=== PATIENT | male | born 1960 | race Two or more races ===

== ENCOUNTER 2024-06-14 17:09 | Emergency (ER) | payer BC, MEDICAID ==
[~2024-06-14] VITALS: Ht 175.3 cm; Wt 98.2 kg
[2024-06-14 18:33] VITALS: BP 148/88; PULSE 92; TEMP 98.8
[2024-06-14] MEDS ORDERED: PRED20TA2 PO (20:03)
[2024-06-14] MEDS ORDERED: ALBUAER3 IN (20:03)
--- NOTE | 2024-06-14 20:03 | ED.PDOC ---
SOB-HPI HPI Comments 64-year-old male presents to ER with complaints of asthma exacerbation x1 day. Patient with past medical history significant for asthma reports that he started experiencing wheezing and shortness of breath at 3:00 p.m. prior to arrival to ER. States he has had similar symptoms in the past related to asthma exacerbation and notes that he recently moved up here three weeks ago and has been experiencing intermittent asthma exacerbation since. States he did use his albuterol inhaler and albuterol nebulizer treatment with slight relief. Patient presents to ER ambulatory on arrival, with steady gait, in no distress with pulse ox noted to be 96% on room air. Denies fever, recent illness, chest pain or any further symptoms/complaints Chief Complaint: Shortness of Breath Time Seen by MD: 18:08 Primary Care Provider: PANKAJ Reviewed notes: Nurses Notes, Medications, Allergies Information Source: Patient Mode of Arrival: Ambulatory Past Medical History PAST MEDICAL HISTORY: Asthma, HTN Surgical History: Denies all surgeries Family History Family History: Unknown Social History Smoker: Non-Smoker Alcohol: Denies ETOH Use Drugs: Denies Drug Use Lives In: Home Constitutional: denies: chills, diaphoresis, fatigue, fever, malaise, sweats, weakness, others EENTM: denies: blurred vision, double vision, ear bleeding, ear discharge, ear drainage, ear pain, ear ringing, eye pain, eye redness, hearing loss, mouth pain, mouth swelling, nasal discharge, nose bleeding, nose congestion, nose pain, photophobia, tearing, throat pain, throat swelling, voice changes, others Respiratory: reports: others (As stated in HPI) Cardiovascular: denies: chest pain, dizzy spells, diaphoresis, Dyspnea on exertion, edema, irregular heart beat, left arm pain, lightheadedness, palpitations, PND, syncope, others Gastrointestinal: denies: abdomen distended, abdominal pain, blood streaked bowels, constipated, diarrhea, dysphagia, difficulty swallowing, hematemesis, melena, nausea, poor appetite, poor fluid intake, rectal bleeding, rectal pain, vomiting, others Genitourinary: denies: burning, dysuria, flank pain, frequency, hematuria, incontinence, penile discharge, penile sore, pain, testicle pain, testicle swelling, urgency, others Neurological: denies: dizziness, fainting, headache, left sided numbness, left sided weakness, numbness, paresthesia, pre-existing deficit, right sided numbness, right sided weakness, seizure, speech problems, tingling, tremors, weakness, others Musculoskeletal: denies: back pain, gout, joint pain, joint swelling, muscle pain, muscle stiffness, neck pain, others Integumetry: denies: bruises, change in color, change in hair/nails, dryness, laceration, lesions, lumps, rash, wounds, others Allergic/Immunocompromised: denies: Difficulty Healing, Frequent Infections, Hives, Itching, others Hematologic/Lymphatic: denies: anemia, blood clots, easy bleeding, easy bruising, swollen glands, others Endocrine: denies: excessive hunger, excessive sweating, excessive thirst, excessive urination, flushing, intolerance to cold, intolerance to heat, unexplained weight gain, unexplained weight loss, others Psychiatric: denies: anxiety, bipolar disorder, depression, hopeless, panic disorder, schizophrenia, sleepless, suicidal, others Physical Exam General Appearance: No Apparent Distress, Obese HEENT: Normal ENT Inspection, PERRL/EOMI, Pharynx Normal, TMs Normal Neck: Full Range of Motion, Non-Tender, Normal Respiratory: Chest Non-Tender, Lungs Clear, No Accessory Muscle Use, No Respiratory Distress, Wheezing (Mild wheezing noted to bilateral upper lung tejeda) Cardiovascular: No Murmur, No Gallop, Regular Rate/Rhythm Breast Exam: Deferred Gastrointestinal: NOT DONE Genitalia: Deferred Pelvic: Deferred Rectal: Deferred Extremities: Normal capillary refill, Normal range of motion Neurologic: Alert, No Motor Deficits, Normal Affect, Normal Mood, No Sensory Deficits Cerebellar Function: Normal Reflexes: Normal Skin: Dry, Normal Color, Warm Peripheral Pulses: 2+ Radial (R), 2+ Radial (L), 2+ Brachial (R), 2+ Brachial (L) Lymphatic: No Adenopathy Was a procedure done? Was a procedure done?: No Sedation Sedation?: No Differential Dx Differential Diagnosis: Pneumonia, Pulmonary Embolism, Respiratory Distress X-Ray, Labs, Meds, VS Vital Signs Date Time Temp Pulse Resp B/P (MAP) Pulse Ox O2 Delivery O2 Flow Rate FiO2 06/14/24 18:33 92 20 96 Room Air 06/14/24 18:33 98.8 92 20 148/88 (108) 96 98.8 06/14/24 17:20 98.8 92 20 148/88 (309) 96 Solu-Medrol 125 mg IM ordered Albuterol 5 mg nebulizer treatment ordered Atrovent 0.5 mg nebulizer treatment ordered Patient had improvement in symptoms and was asymptomatic prior to discharge Advised to drink plenty of fluids Advised to follow up with PCP in 1-2 days Patient verbalized understanding and agreeable with current plan of care Advised to return to ER immediately if symptoms worsen Time of 1ST Reevaluation: 19:44 Reevaluation 1ST: N/A Patient Education/Counseling: Diagnosis, Treatment, Prognosis, Need For Follow Up Family Education/Counseling: No Family Present Departure 1 Departure Time of Disposition: 20:00 Impression: Primary Impression: Acute asthma exacerbation Qualified Codes: J45.21 - Mild intermittent asthma with (acute) exacerbation Disposition: 01 HOME / SELF CARE / HOMELESS Condition: Stable e-Prescriptions Prednisone (Prednisone) 20 Mg Tab 20 MG PO BID for 5 Days, #10 TAB 0 Refills Prov: SAVAGE VILLEDA 06/14/24 Albuterol Sulfate (VENTOLIN MDI) 90 Mcg Ih 2 PUFF IN Q6HPRN, #1 INH 0 Refills Prov: SAVAGE VILLEDA 06/14/24 Discharged With: Self Critical Care Note Critical Care Time?: No Stability Stability form required: No Heart Score Heart Score: Heart Score Response (Comments) Value History N/A 0 EKG N/A 0 Age N/A 0 Risk Factors N/A 0 Troponin N/A 0 Total 0 SAVAGE VILLEDA Jun 14, 2024 20:03
[2024-06-14] MEDS: methylPREDNISolone SOD SUCC 125 MG/2 ML VL IM ONE (20:08)
[2024-06-14] MEDS: ALBUTEROL SULF 2.5 MG/0.5ML(0.5%) NEB SOLN NEB ONE (20:11)
[2024-06-14 20:12] VITALS: RESP 16; O2SAT 95
[2024-06-14] MEDS: IPRATROPIUM BROM 0.5 MG/2.5ML INH SOL NEB ONE (20:12)
== END 2024-06-14 20:24 | disposition home or self-care (01) ==
LOC: ER 17:17
DX: J45.901 Unspecified asthma with (acute) exacerbation (principal); I10 Essential (primary) hypertension
CPT/HCPCS: 94640; 96372; 99283; J2919

== ENCOUNTER 2024-07-13 10:29 | Emergency (ER) | payer BC, MEDICAID ==
[~2024-07-13] VITALS: Ht 175.3 cm; Wt 97.9 kg
[~2024-07-13 10:29] MED LIST: ALBUAER3 IN; PRED20TA2 PO
--- NOTE | 2024-07-13 11:11 | DVH ---
EXAM: XY CHEST PORTABLE Indication: SOB Technique: Single frontal view of the chest was obtained Comparison: None FINDINGS: Lines and Tubes: None Lungs: No focal consolidation. Pleura: No effusion. No pneumothorax. Cardiomediastinal contours: Unremarkable Bones: No acute osseous abnormality. IMPRESSION: No acute cardiopulmonary disease.
[2024-07-13 11:23] LABS: Basophils # (auto) 0.1 10 ^3/uL (0-0.2); Basophils % (auto) 1.1 % (0.0-2.0); Eosinophils # (auto) 0.3 10 ^3/uL (0-0.8); Eosinophils % (auto) 5.7 % (0.0-7.0); Hematocrit 41.5 % (41.0-53.0); Hemoglobin 14.4 g/dL (13.5-17.5); Lymphocytes # (auto) 1.3 10 ^3/uL (0.4-5.4); Mean Corpuscular Hemoglobin 34.1 pg (28.0-32.0); Mean Corpuscular Hgb Conc. 34.6 g/dL (32.0-36.0); Mean Corpuscular Volume 98.3 fL (80.0-100.0); Monocytes # (auto) 0.3 10 ^3/uL (0-1.3); Monocytes % (auto) 4.7 % (0.0-12.0); Neutrophils # (auto) 3.7 10 ^3/uL (1.6-8.6); Neutrophils % (auto) 65.5 % (37.0-80.0); Platelet Count (auto) 261 10^3/uL (140-450); Red Blood Cells 4.22 10^6/uL (4.5-5.90); Red Cell Distribution Width 11.7 % (11.8-14.3); White Blood Cell 5.7 10^3/uL (4.4-10.8)
[2024-07-13] MEDS ORDERED: BUDE1AER16 IN (11:33)
[2024-07-13] MEDS ORDERED: PRED20TA2 PO (11:33)
[2024-07-13 11:34] LABS: Chloride 104 mmol/L (98-107); Sodium 141 mmol/L (136-145)
[2024-07-13 11:35] LABS: Anion Gap 6 (5-15); Carbon Dioxide 31 mmol/L (20-31)
[2024-07-13 11:40] LABS: Glucose 91 mg/dL (74-106)
[2024-07-13 11:41] LABS: BUN/Creatinine Ratio 15.4 (10.0-20.0); Blood Urea Nitrogen 18 mg/dL (9-23)
[2024-07-13] MEDS: ALBUTEROL SULF 2.5 MG/0.5ML(0.5%) NEB SOLN NEB ONE (11:42)
[2024-07-13] MEDS: IPRATROPIUM BROM 0.5 MG/2.5ML INH SOL NEB ONE (11:42)
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
[2024-07-13 13:10] VITALS: BP 141/88; TEMP 98.3
[2024-07-13 13:12] VITALS: PULSE 70; RESP 16; O2SAT 97
[2024-07-13] MEDS: DexAMETHasone SOD PHOS 10MG/1ML VIAL INJ IM ONE (13:21)
== END 2024-07-13 13:29 | disposition home or self-care (01) ==
LOC: ER 10:29
DX: J45.901 Unspecified asthma with (acute) exacerbation (principal); I10 Essential (primary) hypertension; Z76.0 Encounter for issue of repeat prescription
CPT/HCPCS: 36415; 71045; 80048; 83880; 84484; 85025; 94640; 96372; 99284; J1100

== ENCOUNTER 2025-02-12 08:47 | Emergency (ER) | payer BC, MEDICAID ==
[~2025-02-12] VITALS: Ht 175.3 cm; Wt 104.4 kg
[~2025-02-12 08:47] MED LIST changes: +BUDE1AER16 IN
--- NOTE | 2025-02-12 09:13 | ECG ---
[facility] Test Date: 2025-02-12 Test Time: 09:09:18 Pat Name: HUGO BERGERON Department: [facility] Room: Gender: Senior Qa Tester: ELLIE : 1960 Requested By: TRESA BARTLETT Order Number: [id number] Reading MD: Measurements Intervals [place] Rate: 62 P: 33 ND: 158 QRS: 31 QRSD: 95 T: 48 QT: 430 QTc: 437 Interpretive Statements Sinus rhythm Borderline T wave abnormalities Please click the below link to view image of tracing.
--- NOTE | 2025-02-12 09:22 | ED.PDOC ---
SOB-HPI HPI Comments A 64 YEAR-OLD MALE, WITH A PMHX OF ASTHMA AND HTN, PRESENTS TO THE ED WITH A CHIEF COMPLAINT OF SOB WITH WHEEZING OF X2 DAYS AGO. PATIENT STATES HE HAS HX OF ASTHMA AND USES ALBUTEROL INHALER AT HOME. DID A BREATHING TREATMENT AT HOME WITH NO ALLEVIATING FACTORS NOTED. PATIENT STATES HE WAS RECENTLY EXPOSED TO LOTS OF DIRT THAT MAY HAVE AGGRAVATED ASTHMA. PATIENT OTHERWISE DENIES OTHER ASSOCIATED SYMPTOMS OF CHEST PAIN, COUGH, N/V/D, DIZZINESS, BLURRED VISION, OR PALPITATIONS. PATIENT IS ALERT, ORIENTED X 4, AND HAS STEADY GAIT. Chief Complaint: Asthma Time Seen by MD: 09:15 Primary Care Provider: yosi Reviewed notes: Nurses Notes, Medications, Allergies Information Source: Patient Mode of Arrival: Ambulatory Severity: Moderate Timing: Days (2) Duration: Since onset History of: Asthma Associated Signs and Symptoms: Other (SOB ) Other History ASTHMA AND HTN Past Medical History PAST MEDICAL HISTORY: Asthma, HTN Surgical History: Denies all surgeries Family History Family History: Unknown Social History Smoker: Non-Smoker Alcohol: Denies ETOH Use Drugs: Denies Drug Use Lives In: Home Constitutional: denies: chills, diaphoresis, fatigue, fever, malaise, sweats, weakness, others EENTM: denies: blurred vision, double vision, ear bleeding, ear discharge, ear drainage, ear pain, ear ringing, eye pain, eye redness, hearing loss, mouth pain, mouth swelling, nasal discharge, nose bleeding, nose congestion, nose pain, photophobia, tearing, throat pain, throat swelling, voice changes, others Respiratory: reports: shortness of breath, wheezing; denies: cough, hemoptysis, orthopnea, stridor, others Cardiovascular: denies: chest pain, dizzy spells, diaphoresis, Dyspnea on exertion, edema, irregular heart beat, left arm pain, lightheadedness, palpitations, PND, syncope, others Gastrointestinal: denies: abdomen distended, abdominal pain, blood streaked bowels, constipated, diarrhea, dysphagia, difficulty swallowing, hematemesis, melena, nausea, poor appetite, poor fluid intake, rectal bleeding, rectal pain, vomiting, others Genitourinary: denies: burning, dysuria, flank pain, frequency, hematuria, incontinence, penile discharge, penile sore, pain, testicle pain, testicle swelling, urgency, others Neurological: denies: dizziness, fainting, headache, left sided numbness, left sided weakness, numbness, paresthesia, pre-existing deficit, right sided numbness, right sided weakness, seizure, speech problems, tingling, tremors, weakness, others Musculoskeletal: denies: back pain, gout, joint pain, joint swelling, muscle pain, muscle stiffness, neck pain, others Integumetry: denies: bruises, change in color, change in hair/nails, dryness, laceration, lesions, lumps, rash, wounds, others Allergic/Immunocompromised: denies: Difficulty Healing, Frequent Infections, Hives, Itching, others Hematologic/Lymphatic: denies: anemia, blood clots, easy bleeding, easy bruising, swollen glands, others Endocrine: denies: excessive hunger, excessive sweating, excessive thirst, excessive urination, flushing, intolerance to cold, intolerance to heat, unexplained weight gain, unexplained weight loss, others Psychiatric: denies: anxiety, bipolar disorder, depression, hopeless, panic disorder, schizophrenia, sleepless, suicidal, others All Other Systems: Reviewed and Negative Physical Exam General Appearance: No Apparent Distress, Normal HEENT: Normal ENT Inspection, PERRL/EOMI, Pharynx Normal, TMs Normal Neck: Full Range of Motion, Non-Tender, Normal, Normal Inspection Respiratory: Chest Non-Tender, Decreased Breath Sounds, Expiration, No Accessory Muscle Use, No Respiratory Distress, Rhonchi Cardiovascular: No Edema, No JVD, No Murmur, No Gallop, Normal Peripheral Pulses, Regular Rate/Rhythm Breast Exam: Deferred Gastrointestinal: No Organomegaly, Non Tender, No Pulsatile Mass, Normal Bowel Sounds, Soft Genitalia: Deferred Pelvic: Deferred Rectal: Deferred Extremities: No calf tenderness, Normal capillary refill, Normal inspection, Normal range of motion, Non-tender, No pedal edema Musculoskeletal : Apperance: Normal Neurologic: Alert, chief knowledge officer II-XII nml as Tested, No Motor Deficits, Normal Affect, Normal Mood, No Sensory Deficits Cerebellar Function: Normal Reflexes: Normal Skin: Dry, Normal Color, Warm Peripheral Pulses: 2+ carotid (R), 2+ carotid (L) Lymphatic: No Adenopathy EKG EKG : Pulse Rate (adult): 62 [place]: Normal Cardiac Rhythm: NSR Was a procedure done? Was a procedure done?: No Differential Dx Differential Diagnosis: Anxiety, Asthma, COPD, Panic Attack, Sinusitis, Allergic Rhinitis X-Ray, Labs, Meds, VS Vital Signs Date Time Temp Pulse Resp B/P (MAP) Pulse Ox O2 Delivery O2 Flow Rate FiO2 02/12/25 10:01 18 98 Room Air* 0 21 02/12/25 09:23 62 02/12/25 09:09 62 02/12/25 09:05 98.4 64 13 153/94 (113) 98 98.4 02/12/25 09:05 13 98 Room Air* 0 21 Current Medications Medications (Trade) Dose Ordered Sig/Haydee Route Start Time Stop Time Status Last Admin Albuterol (Ventolin Medneb) 5 mg ONCE ONCE NEB 02/12/25 09:30 02/12/25 09:31 DC 02/12/25 10:02 Ipratropium [place] (Atrovent Medneb) 1 mg ONCE ONCE NEB 02/12/25 09:30 02/12/25 09:31 DC 02/12/25 10:01 Methylprednisolone Sodium Succinate (Solu Medrol) 125 mg ONCE ONCE IM 02/12/25 09:30 02/12/25 09:31 DC 02/12/25 09:58 X-Ray, Labs, Meds, VS Comment EXTERNAL MEDICAL RECORDS: NONE INDEPENDENT HISTORIANS: NONE SOCIAL DETERMINANTS OF HEALTH: NONE LABS ORDERED: NONE REVIEWED AND INTERPRETED RESULTS: NONE IMAGING ORDERED: CHEST XRAY: NO ACUTE FINDING, READ BY ME, PENDING RADIOLOGIST READING. TREATMENTS ORDERED: VEBTOLIN 5MG, ATROVENT 1MG, SOLU MEDROL IM. AFTER TREATMENT, PT STATES HE FEELS BETTER AND READY TO GO HOME. PATIENT'S CASE AND RESULTS HAVE BEEN DISCUSSED WITH THE ED ATTENDING PHYSICIAN AND THEY AGREE WITH MY PLAN OF CARE. RX: PREDNISONE I HAVE DISCUSSED IMAGING AND LAB RESULTS WITH THE PATIENT AND HAVE INSTRUCTED THE PATIENT TO FOLLOW UP WITH THEIR PCP IN 1-2 DAYS. THE PATIENT FULLY UNDERSTANDS THEIR RESULTS AND ARE AWARE THEY NEED TO FOLLOW UP WITH THEIR PCP FOR FURTHER EVALUATION IF THEIR SYMPTOMS PERSIST. Images Reviewed?: Images reviewed and evaluated by me Time of 1ST Reevaluation: 10:20 Reevaluation 1ST: Improved Patient Education/Counseling: Diagnosis, Treatment, Need For Follow Up Family Education/Counseling: Diagnosis, Treatment, No Family Present Medical Screening: No EMC Exist At This Time SEPSIS Sepsis Screen Physician Orders Chest Portable (02/12/25 09:17) Vital Signs Date Time Temp Pulse Resp B/P (MAP) Pulse Ox O2 Delivery O2 Flow Rate FiO2 02/12/25 10:01 18 98 Room Air* 0 21 02/12/25 09:23 62 02/12/25 09:09 62 02/12/25 09:05 98.4 64 13 153/94 (113) 98 98.4 02/12/25 09:05 13 98 Room Air* 0 21 Medications Medications Dose Ordered Sig/Haydee Route Start Time Stop Time Status Last Admin Dose Admin Albuterol 5 mg ONCE ONCE NEB 02/12/25 09:30 02/12/25 09:31 DC 02/12/25 10:02 Ipratropium [place] 1 mg ONCE ONCE NEB 02/12/25 09:30 02/12/25 09:31 DC 02/12/25 10:01 Methylprednisolone Sodium Succinate 125 mg ONCE ONCE IM 02/12/25 09:30 02/12/25 09:31 DC 02/12/25 09:58 Departure 1 Departure Time of Disposition: 10:20 Impression: Primary Impression: Acute asthma exacerbation Qualified Codes: J45.31 - Mild persistent asthma with (acute) exacerbation Disposition: HOME / SELF CARE / HOMELESS Condition: Stable Additional Instructions: FOLLOW-UP WITH PCP IN 1 TO 2 DAYS. TAKE MEDICATIONS PRESCRIBED. RETURN TO ED FOR ANY NEW OR WORSENING SYMPTOMS. e-Prescriptions Prednisone (Prednisone) 20 Mg Tab 60 MG PO DAILY, #15 TAB Prov: SATYA MILLS 02/12/25 Discharged With: Self Critical Care Note Critical Care Time?: No Stability Stability form required: No Heart Score Heart Score: Heart Score Response (Comments) Value History N/A 0 EKG N/A 0 Age >65 2 Risk Factors N/A 0 Troponin N/A 0 Total 2 I personally scribed for SATYA MILLS ([email or web address]) on 02/12/25 at 09:22. Electronically submitted by Sylvie Mckenzie ([email or web address]). I personally scribed for SATYA MILLS ([email or web address]) on 02/12/25 at 09:23. Electronically submitted by Sylvie Mckenzie ([email or web address]). I personally scribed for SATYA MILLS ([email or web address]) on 02/12/25 at 09:25. Electronically submitted by Sylvie Mckenzie ([email or web address]). SATYA MILLS Feb 12, 2025 09:22
[2025-02-12] MEDS: IPRATROPIUM BROM 0.5 MG/2.5ML INH SOL NEB ONE ×2 (09:33→10:01)
[2025-02-12] MEDS: methylPREDNISolone SOD SUCC 125 MG/2 ML VL IM ONE (09:58)
[2025-02-12] MEDS: ALBUTEROL SULF 2.5 MG/0.5ML(0.5%) NEB SOLN NEB ONE (10:02)
[2025-02-12] MEDS ORDERED: PRED20TA2 PO (10:09)
[2025-02-12 10:15] VITALS: BP 165/85; PULSE 63; RESP 14; TEMP 98.4; O2SAT 99
--- NOTE | 2025-02-12 10:41 | DVH ---
CLINICAL INFORMATION: Wheezing. TECHNIQUE: Single AP portable chest radiograph was obtained. COMPARISON: XY CHEST PORTABLE on DOS: 07/13/24 FINDINGS: Lungs: Clear. Cardiac: Heart size is within normal limits. Pulmonary vasculature: Unremarkable. Mediastinum/maren: Unremarkable. Bones: No acute osseous abnormality identified. Other: No other significant findings. IMPRESSION: No evidence of acute disease in the chest.
== END 2025-02-12 10:29 | disposition home or self-care (01) ==
LOC: ER 08:47
DX: J45.901 Unspecified asthma with (acute) exacerbation (principal); I10 Essential (primary) hypertension
CPT/HCPCS: 71045; 93005; 94640; 96372; 99283; J2919

== ENCOUNTER 2025-04-11 09:58 | Emergency (ER) | payer BC, MEDICAID ==
[~2025-04-11] VITALS: Ht 175.3 cm; Wt 103.8 kg
[2025-04-11 11:30] VITALS: BP 166/91; PULSE 63; TEMP 98.4
--- NOTE | 2025-04-11 11:40 | ED.PDOC ---
SOB-HPI HPI Comments 65 year old male presents to the ED with a chief complaint of asthma exa cerbation onset 3 days. Patient has been experiencing asthma exacerbation, with shortness of breath and wheezing for the past 3 days, worsens at night. He has used nebulizer and albuterol inhaler with intermittent relief. Denies fever, chills, headache, dizziness, chest pain, nausea, vomiting, diarrhea. PMHx asthma, HTN. No other symptoms or modifying factors present at this time. Chief Complaint: Asthma Time Seen by MD: 11:40 Primary Care Provider: yosi Reviewed notes: Medications, Allergies Information Source: Patient Mode of Arrival: Ambulatory Severity: Moderate Timing: Days Duration: Since onset Context: At Rest PE Risk Factors: None History of: Asthma Prehospital treatment: Treatment Modifying Factors: Nothing Associated Signs and Symptoms: Wheeze Past Medical History PAST MEDICAL HISTORY: Asthma, HTN Surgical History: Denies all surgeries Family History Family History: Unknown Social History Smoker: Non-Smoker Alcohol: Denies ETOH Use Drugs: Denies Drug Use Lives In: Home Constitutional: denies: chills, diaphoresis, fatigue, fever, malaise, sweats, weakness, others EENTM: denies: blurred vision, double vision, ear bleeding, ear discharge, ear drainage, ear pain, ear ringing, eye pain, eye redness, hearing loss, mouth p ain, mouth swelling, nasal discharge, nose bleeding, nose congestion, nose pain, photophobia, tearing, throat pain, throat swelling, voice changes, others Respiratory: reports: cough, shortness of breath, wheezing; denies: hemoptysis, orthopnea, SOB at rest, SOB with excertion, stridor, others Cardiovascular: denies: chest pain, dizzy spells, diaphoresis, Dyspnea on exertion, edema, irregular heart beat, left arm pain, lightheadedness, palpitations, PND, syncope, others Gastrointestinal: denies: abdomen distended, abdominal pain, blood streaked bowels, constipated, diarrhea, dysphagia, difficulty swallowing, hematemesis, melena, nausea, poor appetite, poor fluid intake, rectal bleeding, rectal pain, vomiting, others Genitourinary: denies: burning, dysuria, flank pain, frequency, hematuria, incontinence, penile discharge, penile sore, pain, testicle pain, testicle swelling, urgency, others Neurological: denies: dizziness, fainting, headache, left sided numbness, left sided weakness, numbness, paresthesia, pre-existing deficit, right sided numbness, right sided weakness, seizure, speech problems, tingling, tremors, weakness, others Musculoskeletal: denies: back pain, gout, joint pain, joint swelling, muscle pain, muscle stiffness, neck pain, others Integumetry: denies: bruises, change in color, change in hair/nails, dryness, laceration, lesions, lumps, rash, wounds, others Allergic/Immunocompromised: denies: Difficulty Healing, Frequent Infections, Hives, Itching, others Hematologic/Lymphatic: denies: anemia, blood clots, easy bleeding, easy bruising, swollen glands, others Endocrine: denies: excessive hunger, excessive sweating, excessive thirst, excessive urination, flushing, intolerance to cold, intolerance to heat, unexplained weight gain, unexplained weight loss, others Psychiatric: denies: anxiety, bipolar disorder, depression, hopeless, panic disorder, schizophrenia, sleepless, suicidal, others All Other Systems: Reviewed and Negative Physical Exam General Appearance: Mild Distress, Moderate Distress, Normal HEENT: Normal ENT Inspection, PERRL/EOMI, Pharynx Normal, TMs Normal Neck: Full Range of Motion, Non-Tender, Normal, Normal Inspection Respiratory: Crackles, Decreased Breath Sounds, Expiration, Inspiration, Lungs Clear, No Accessory Muscle Use, No Respiratory Distress, Wheezing Cardiovascular: No Edema, No JVD, No Murmur, No Gallop, Normal Peripheral Pulses, Regular Rate/Rhythm Breast Exam: Deferred Gastrointestinal: No Organomegaly, Non Tender, No Pulsatile Mass, Normal Bowel Sounds, Soft Genitalia: Deferred Pelvic: Deferred Rectal: Deferred Extremities: No calf tenderness, Normal capillary refill, Normal inspection, Normal range of motion, Non-tender, No pedal edema Musculoskeletal : Apperance: Normal Neurologic: Alert, manager of patient II-XII nml as Tested, No Motor Deficits, Normal Affect, Normal Mood, No Sensory Deficits Cerebellar Function: Normal Reflexes: Normal Skin: Dry, Normal Color, Warm Peripheral Pulses: 1+ carotid (R), 1+ carotid (L) Lymphatic: No Adenopathy Was a procedure done? Was a procedure done?: No Differential Dx Differential Diagnosis: Asthma, Bronchitis, URI X-Ray, Labs, Meds, VS Vital Signs Date Time Temp Pulse Resp B/P (MAP) Pulse Ox O2 Delivery O2 Flow Rate FiO2 04/11/25 11:50 18 98 Room Air* 0 21 04/11/25 11:30 63 18 97 Room Air 04/11/25 11:30 98.4 63 18 166/91 (116) 97 98.4 04/11/25 10:05 24 96 Room Air* 0 21 04/11/25 10:00 98.8 70 24 156/88 96 98.8 Current Medications Medications (Trade) Dose Ordered Sig/Haydee Route Start Time Stop Time Status Last Admin Albuterol (Ventolin Medneb) 5 mg ONCE ONCE NEB 04/11/25 11:45 04/11/25 11:46 DC 04/11/25 11:49 Ipratropium [place] (Atrovent Medneb) 0.5 mg ONCE ONCE NEB 04/11/25 11:45 04/11/25 11:46 DC 04/11/25 11:49 Methylprednisolone Sodium Succinate (Solu Medrol) 125 mg ONCE ONCE IM 04/11/25 11:45 04/11/25 11:46 DC 04/11/25 11:51 X-Ray, Labs, Meds, VS Comment Course in the [employer] eventful patient came in with a an acute asthma attack You received med neb and also prednisone If his better and ready to be discharged Time of 1ST Reevaluation: 12:10 Reevaluation 1ST: Unchanged Patient Education/Counseling: Diagnosis, Treatment, Prognosis Family Education/Counseling: No Family Present SEPSIS Sepsis Screen Date sepsis recognized/suspect: Apr 11, 2025 Time Sepsis recognized/suspect: 1000 Recent Procedure: No On Antibiotic Therapy: No Respiratory Rate >20: Yes Heart Rate >90: No Temp<36 C (96.8 F) or >38.3 C: No SBP <90 or MAP <65 mmHG: No New Acute Mental Status Change: No Is the patient on CPAP, BIPAP,: No Vital Signs Date Time Temp Pulse Resp B/P (MAP) Pulse Ox O2 Delivery O2 Flow Rate FiO2 04/11/25 11:50 18 98 Room Air* 0 21 04/11/25 11:30 63 18 97 Room Air 04/11/25 11:30 98.4 63 18 166/91 (116) 97 98.4 04/11/25 10:05 24 96 Room Air* 0 21 04/11/25 10:00 98.8 70 24 156/88 96 98.8 Medications Medications Dose Ordered Sig/Haydee Route Start Time Stop Time Status Last Admin Dose Admin Albuterol 5 mg ONCE ONCE NEB 04/11/25 11:45 04/11/25 11:46 DC 04/11/25 11:49 Ipratropium [place] 0.5 mg ONCE ONCE NEB 04/11/25 11:45 04/11/25 11:46 DC 04/11/25 11:49 Methylprednisolone Sodium Succinate 125 mg ONCE ONCE IM 04/11/25 11:45 04/11/25 11:46 DC 04/11/25 11:51 Departure 1 Departure Time of Disposition: 12:44 Impression: Primary Impression: Asthma with status asthmaticus Qualified Codes: J45.42 - Moderate persistent asthma with status asthmaticus Disposition: HOME / SELF CARE / HOMELESS Condition: Fair Additional Instructions: Follow up with your PCP e-Prescriptions Albuterol Sulfate (VENTOLIN MDI) 90 Mcg Ih 90 MCG IN BID for 10 Days, #1 INH Prov: SABINE PASCUAL MD 04/11/25 Prednisone (Prednisone) 20 Mg Tab 20 MG PO BID for 5 Days, #10 MG Prov: SABINE PASCUAL MD 04/11/25 Azithromycin (Zithromax) 500 Mg Tab 1 TAB PO DAILY for 5 Days, #5 TAB Prov: SABINE PASCUAL MD 04/11/25 Discharged With: Self Critical Care Note Critical Care Time?: No Stability Stability form required: No Heart Score Heart Score: Heart Score Response (Comments) Value History N/A 0 EKG N/A 0 Age N/A 0 Risk Factors 1 or 2 risk factors 1 Troponin N/A 0 Total 1 I personally scribed for SABINE PASCUAL MD ([email or web address]) on 04/11/25 at 11:40. Electronically submitted by Omayra Underwood ([email or web address]). SABINE PASCUAL MD Apr 11, 2025 11:40
[2025-04-11] MEDS: IPRATROPIUM BROM 0.5 MG/2.5ML INH SOL NEB ONE (11:49)
[2025-04-11] MEDS: ALBUTEROL SULF 2.5 MG/0.5ML(0.5%) NEB SOLN NEB ONE (11:49)
[2025-04-11 11:50] VITALS: RESP 18; O2SAT 98
[2025-04-11] MEDS: methylPREDNISolone SOD SUCC 125 MG/2 ML VL IM ONE (11:51)
[2025-04-11] MEDS ORDERED: AZIT500T PO (12:48)
[2025-04-11] MEDS ORDERED: PRED20TA2 PO (12:48)
[2025-04-11] MEDS ORDERED: ALBUAER3 IN (12:48)
== END 2025-04-11 12:54 | disposition home or self-care (01) ==
LOC: ER 09:58
DX: J45.902 Unspecified asthma with status asthmaticus (principal); I10 Essential (primary) hypertension
CPT/HCPCS: 94640; 96372; 99283; J2919

== ENCOUNTER 2025-07-13 08:56 | Inpatient (IN) | payer BC, MEDICAID ==
[~2025-07-13] VITALS: Ht 175.3 cm; Wt 99.1 kg
[~2025-07-13 08:56] MED LIST changes: +AZIT500T PO
--- NOTE | 2025-07-13 09:27 | ED.PDOC ---
GI ASSESSMENT HPI Comments This is a 65 year old male presenting to the ED with chief complaint of N/V/D. Patient reports that last Friday, he began to experiencing diarrhea with associated diffuse abdominal pain, nausea, and vomiting. Patient relays that his diarrhea has continued until now. Patient states that he was advised by his pharmacist to come into the ED for further evaluation. Patient denies any fever, chills, hematemesis, blood in stool, or chest pain. Chief Complaint: Diarrhea Time Seen by MD: 09:25 Primary Care Provider: yosi Reviewed Notes: Nurses Notes, Medications, Allergies Allergies: Coded Allergies: NO KNOWN ALLERGIES (Unverified , 06/14/24) Home Meds Active Scripts Albuterol Sulfate (VENTOLIN MDI) 90 Mcg Ih, 90 MCG IN BID for 10 Days, #1 INH Prov:SABINE PASCUAL MD 04/11/25 Prednisone (Prednisone) 20 Mg Tab, 20 MG PO BID for 5 Days, #10 MG Prov:SABINE PASCUAL MD 04/11/25 Azithromycin (Zithromax) 500 Mg Tab, 1 TAB PO DAILY for 5 Days, #5 TAB Prov:SABINE PASCUAL MD 04/11/25 Prednisone (Prednisone) 20 Mg Tab, 60 MG PO DAILY, #15 TAB Prov:SATYA MILLS 02/12/25 Budesonide-Formoterol Fumarate (Breyna 160-4.5 Mcg/Act) 1 Aer Aer, 2 PUFF IN Q12HR, #1 AER Prov:GERTRUDE STEPHENS MD 07/13/24 Prednisone (Prednisone) 20 Mg Tab, 20 MG PO BID for 5 Days, #10 TAB 0 Refills Prov:GERTRUDE STEPHENS MD 07/13/24 Albuterol Sulfate (VENTOLIN MDI) 90 Mcg Ih, 2 PUFF IN Q6HPRN, #1 INH 0 Refills Prov:SAVAGE VILLEDA 06/14/24 Information Source: Patient Mode of Arrival: Ambulatory Timing: Days Duration: Since onset Prehospital treatment: None Quality: Aching Vomitus: Watery Stool: Watery Severity: Moderate Recent: None Recent Hx of: None Pain Location: Diffuse Modifying Factors: Nothing Associated sign and symptoms: Nausea, Vomiting, Diarrhea, Abdominal Pain Past Medical History PAST MEDICAL HISTORY: Asthma, HTN Surgical History: Denies all surgeries Family History Family History: Reviewed,noncontributory to illness, Unknown Social History Smoker: Non-Smoker Alcohol: Denies ETOH Use Drugs: Denies Drug Use Lives In: Home Constitutional: denies: chills, diaphoresis, fatigue, fever, malaise, sweats, weakness, others EENTM: denies: blurred vision, double vision, ear bleeding, ear discharge, ear drainage, ear pain, ear ringing, eye pain, eye redness, hearing loss, mouth pain, mouth swelling, nasal discharge, nose bleeding, nose congestion, nose pain, photophobia, tearing, throat pain, throat swelling, voice changes, others Respiratory: denies: cough, hemoptysis, orthopnea, SOB at rest, shortness of breath, SOB with excertion, stridor, wheezing, others Cardiovascular: denies: chest pain, dizzy spells, diaphoresis, Dyspnea on exertion, edema, irregular heart beat, left arm pain, lightheadedness, palpitations, PND, syncope, others Gastrointestinal: reports: abdominal pain, diarrhea, nausea, vomiting; denies: abdomen distended, blood streaked bowels, constipated, dysphagia, difficulty swallowing, hematemesis, melena, poor appetite, poor fluid intake, rectal bleeding, rectal pain, others Genitourinary: denies: burning, dysuria, flank pain, frequency, hematuria, incontinence, penile discharge, penile sore, pain, testicle pain, testicle swelling, urgency, others Neurological: denies: dizziness, fainting, headache, left sided numbness, left sided weakness, numbness, paresthesia, pre-existing deficit, right sided numbness, right sided weakness, seizure, speech problems, tingling, tremors, weakness, others Musculoskeletal: denies: back pain, gout, joint pain, joint swelling, muscle pain, muscle stiffness, neck pain, others Integumetry: denies: bruises, change in color, change in hair/nails, dryness, laceration, lesions, lumps, rash, wounds, others Allergic/Immunocompromised: denies: Difficulty Healing, Frequent Infections, Hives, Itching, others Hematologic/Lymphatic: denies: anemia, blood clots, easy bleeding, easy bruising, swollen glands, others Endocrine: denies: excessive hunger, excessive sweating, excessive thirst, excessive urination, flushing, intolerance to cold, intolerance to heat, unexplained weight gain, unexplained weight loss, others Psychiatric: denies: anxiety, bipolar disorder, depression, hopeless, panic disorder, schizophrenia, sleepless, suicidal, others All Other Systems: Reviewed and Negative Physical Exam General Appearance: Moderate Distress, Normal HEENT: Normal ENT Inspection, Pharynx Normal, TMs Normal Neck: Full Range of Motion, Non-Tender, Normal, Normal Inspection Respiratory: Chest Non-Tender, Lungs Clear, No Accessory Muscle Use, No Respiratory Distress, Normal Breath Sounds Cardiovascular: No Edema, No JVD, No Murmur, No Gallop, Normal Peripheral Pulses, Regular Rate/Rhythm Breast Exam: Deferred Gastrointestinal: No Organomegaly, Non Tender, No Pulsatile Mass, Normal Bowel Sounds, Soft Genitalia: Deferred Pelvic: Deferred Rectal: Deferred Extremities: No calf tenderness, Normal capillary refill, Normal inspection, Normal range of motion, Non-tender, No pedal edema Musculoskeletal : Apperance: Normal Neurologic: Alert, appeals reviewer veteran II-XII nml as Tested, No Motor Deficits, Normal Affect, Normal Mood, No Sensory Deficits Cerebellar Function: Normal Reflexes: Normal Skin: Dry, Normal Color, Warm Peripheral Pulses: 3+ Radial (R), 3+ Radial (L) Lymphatic: No Adenopathy Was a procedure done? Was a procedure done?: No GI differential Dx Differential Diagnosis: Constipation, Diverticular disease, Esophagitis, Gastritis/PUD, Gastroenteritis X-Ray, Labs, Meds, VS Vital Signs Date Time Temp Pulse Resp B/P (MAP) Pulse Ox O2 Delivery O2 Flow Rate FiO2 07/13/25 08:58 98.3 63 15 157/73 98 98.3 Lab Test 07/13/25 09:54 Range/Units White Blood Count 5.4 4.4-10.8 10^3/uL Red Blood Count 4.25 L 4.5-5.90 10^6/uL Hemoglobin 14.0 13.5-17.5 g/dL Hematocrit 41.6 41.0-53.0 % Mean Corpuscular Volume 97.9 80.0-100.0 fL Mean Corpuscular Hemoglobin 32.9 H 28.0-32.0 pg Mean Corpuscular Hemoglobin Concent 33.6 32.0-36.0 g/dL Red Cell Distribution Width 12.1 11.8-14.3 % Platelet Count 240 140-450 10^3/uL Mean Platelet Volume 8.3 6.9-10.8 fL Neutrophils (%) (Auto) 66.2 37.0-80.0 % Lymphocytes (%) (Auto) 25.0 10.0-50.0 % Monocytes (%) (Auto) 6.0 0.0-12.0 % Eosinophils (%) (Auto) 2.1 0.0-7.0 % Basophils (%) (Auto) 0.7 0.0-2.0 % Neutrophils # (Auto) 3.6 1.6-8.6 10 ^3/uL Lymphocytes # (Auto) 1.3 0.4-5.4 10 ^3/uL Monocytes # (Auto) 0.3 0-1.3 10 ^3/uL Eosinophils # (Auto) 0.1 0-0.8 10 ^3/uL Basophils # (Auto) 0 0-0.2 10 ^3/uL Nucleated Red Blood Cells 0.2 % Sodium Level Pending Potassium Level Pending Chloride Level Pending Carbon Dioxide Level Pending Anion Gap Pending Blood Urea Nitrogen Pending Creatinine Pending Glomerular Filtration Rate Calc Pending BUN/Creatinine Ratio Pending Serum Glucose Pending Calcium Level Pending Troponin I High Sensitivity Pending Current Medications Medications (Trade) Dose Ordered Sig/Haydee Route Start Time Stop Time Status Last Admin Sodium Chloride 1,000 ml @ 1,000 mls/hr Q1H ONCE IV 07/13/25 09:45 07/13/25 10:44 07/13/25 10:20 Patient alert. Complaining of abdominal pain diarrhea for many days. Vitals stable. Answering questions. Establish intravenous access. Was given fluids. WBC within normal limits. Explained to the patient. Continue monitoring. Time of 1ST Reevaluation: 10:25 Reevaluation 1ST: Unchanged Patient Education/Counseling: Diagnosis, Treatment Family Education/Counseling: No Family Present SEPSIS Sepsis Screen Date sepsis recognized/suspect: Jul 13, 2025 Time Sepsis recognized/suspect: 09 Recent Procedure: No On Antibiotic Therapy: No Respiratory Rate >20: No Heart Rate >90: No Temp<36 C (96.8 F) or >38.3 C: No SBP <90 or MAP <65 mmHG: No New Acute Mental Status Change: No Is the patient on CPAP, BIPAP,: No Physician Orders Troponin-I Hs (07/13/25 09:35) Urinalysis (07/13/25 09:35) Basic Metabolic Panel (07/13/25 09:35) Sodium Chloride 0.9% (07/13/25 09:45) Ct Ab Pel Wo Con-No Oral Or Iv (07/13/25 09:35) Vital Signs Date Time Temp Pulse Resp B/P (MAP) Pulse Ox O2 Delivery O2 Flow Rate FiO2 07/13/25 08:58 98.3 63 15 157/73 98 98.3 Laboratory Tests Test 07/13/25 09:54 White Blood Count 5.4 10^3/uL (4.4-10.8) Medications Medications Dose Ordered Sig/Haydee Route Start Time Stop Time Status Last Admin Dose Admin Sodium Chloride 1,000 ml @ 1,000 mls/hr Q1H ONCE IV 07/13/25 09:45 07/13/25 10:44 07/13/25 10:20 Departure 1 Departure Time of Disposition: 10:27 Impression: Primary Impression: Acute abdominal pain Additional Impression: Nonspecific colitis Disposition: ADMITTED INPATIENT Admit to: Med Surg Condition: Guarded Critical Care Note Critical Care Time?: No Stability Stability form required: No Heart Score Heart Score: Heart Score Response (Comments) Value History N/A 0 EKG N/A 0 Age N/A 0 Risk Factors N/A 0 Troponin N/A 0 Total 0 I personally scribed for TRESA BARTLETT MD ([email or web address]) on 07/13/25 at 09:27. Electronically submitted by Rangel Avalos ([email or web address]). TRESA BARTLETT MD Jul 13, 2025 09:27
--- NOTE | 2025-07-13 10:12 | DVH ---
Indication: enteritis Comparison: None Technique: Helical axial scans were performed through the abdomen and pelvis without intravenous contrast. Subsequently, coronal and sagittal reformations were obtained. Dose lowering techniques have been used including automated exposure control and adjustment of mA and/or kv according to patient size. FINDINGS: Limited evaluation of the vasculature and solid organs due to lack of intravenous contrast. LUNGS BASES: Clear LIVER: Normal noncontrast appearance of the liver SPLEEN: Normal GALLBLADDER: Normal PANCREAS: Normal ADRENAL GLANDS: Normal KIDNEYS: No hydronephrosis or obstructing renal stone. GI: No bowel dilation or wall thickening. Normal appendix. LYMPH NODES: Normal VASCULAR STRUCTURES: Normal BLADDER: Partially contracted and grossly unremarkable. PELVIC ORGAN: Normal FREE AIR OR FREE FLUID: None OSSEOUS STRUCTURES: Multilevel degenerative changes of the spine. SOFT TISSUES: Metallic density foreign bodies in the soft tissue of the right gluteal region. DLP is 859 mGy-cm. CTDI vol is 14.8 mGy. IMPRESSION: 1. No acute abnormality on noncontrast CT abdomen or pelvis.
[2025-07-13 10:16] LABS: Hematocrit 41.6 % (41.0-53.0); Hemoglobin 14.0 g/dL (13.5-17.5); Mean Corpuscular Hemoglobin 32.9 pg (28.0-32.0); Mean Corpuscular Volume 97.9 fL (80.0-100.0); Nucleated Red Blood Cells % 0.2 %
[2025-07-13] MEDS: SODIUM CHLORIDE 0.9% 1,000 ML IV ONE (10:20)
[2025-07-13 10:28] LABS: Chloride 102 mmol/L (98-107); Potassium 4.3 mmol/L (3.5-5.1); Sodium 139 mmol/L (136-145)
[2025-07-13 10:29] LABS: Anion Gap 8 (5-15); Carbon Dioxide 29 mmol/L (20-31)
[2025-07-13 10:30] LABS: Calcium 9.2 mg/dL (8.7-10.4)
[2025-07-13 10:34] LABS: BUN/Creatinine Ratio 13.8 (10.0-20.0); Blood Urea Nitrogen 16 mg/dL (9-23); Glucose 88 mg/dL (74-106)
[2025-07-13] MEDS: InsuLIN REG 1unit/0.01ml Soln (100units/ml) ONE (11:34)
[2025-07-13 14:15] LABS: Urine Protein, UAD Negative (Negative)
--- NOTE | 2025-07-13 14:22 | DVHINCON2 ---
GI Consult Consult Note GI consult note Date of Consultation: 07/13/2025 Chief Complaint: Melena Referring Physician: Dr. Amaro H&P: 65-year-old male admitted with complains of nausea vomiting and diarrhea, which started last Friday, after eating Thanksgiving dinner on per patient. Few other people who ate the same food also got sick per patient. Patient had nausea vomiting no hematemesis. Also had cramping abdominal pain with nausea and vomiting none at this time No nausea or vomiting at this time. Patient also complains of loose stool about two episodes every day now it is down to one episode. No melena or red blood in stool. Patient denies fevers, chills. Past Medical History: Asthma, hypertension Past Surgical History: Denies Social History: NO smoking, drinking ETOH and use of illegal drugs. Family History: Noncontributory Review of Systems: Constitutional: no fever, chill, weight loss HEENT: no eye pain, no hearing loss, no oral lesion, no scleral icterus Heart: no chest pain, no chest pressure Lung: no cough, no dyspnea with exertion Abdomen: see HPI Physical exam: General: NAD, AAOX3 Chest: lung tejeda clear to auscultation Heart: RRR, no murmur Abdomen: non-distended, no tenderness to palpation, +BS Labs: Labs Test 07/13/25 13:58 07/13/25 09:54 Range/Units White Blood Count 5.4 4.4-10.8 10^3/uL Red Blood Count 4.25 L 4.5-5.90 10^6/uL Hemoglobin 14.0 13.5-17.5 g/dL Hematocrit 41.6 41.0-53.0 % Mean Corpuscular Volume 97.9 80.0-100.0 fL Mean Corpuscular Hemoglobin 32.9 H 28.0-32.0 pg Mean Corpuscular Hemoglobin Concent 33.6 32.0-36.0 g/dL Red Cell Distribution Width 12.1 11.8-14.3 % Platelet Count 240 140-450 10^3/uL Mean Platelet Volume 8.3 6.9-10.8 fL Neutrophils (%) (Auto) 66.2 37.0-80.0 % Lymphocytes (%) (Auto) 25.0 10.0-50.0 % Monocytes (%) (Auto) 6.0 0.0-12.0 % Eosinophils (%) (Auto) 2.1 0.0-7.0 % Basophils (%) (Auto) 0.7 0.0-2.0 % Neutrophils # (Auto) 3.6 1.6-8.6 10 ^3/uL Lymphocytes # (Auto) 1.3 0.4-5.4 10 ^3/uL Monocytes # (Auto) 0.3 0-1.3 10 ^3/uL Eosinophils # (Auto) 0.1 0-0.8 10 ^3/uL Basophils # (Auto) 0 0-0.2 10 ^3/uL Nucleated Red Blood Cells 0.2 % Sodium Level 139 136-145 mmol/L Potassium Level 4.3 3.5-5.1 mmol/L Chloride Level 102 98-107 mmol/L Carbon Dioxide Level 29 20-31 mmol/L Anion Gap 8 5-15 Blood Urea Nitrogen 16 9-23 mg/dL Creatinine 1.16 0.700-1.30 mg/dL Glomerular Filtration Rate Calc 69 >90 mL/min BUN/Creatinine Ratio 13.8 10.0-20.0 Serum Glucose 88 74-106 mg/dL Calcium Level 9.2 8.7-10.4 mg/dL Troponin I High Sensitivity 4 </=54 ng/L Imaging: CT abdomen pelvis IMPRESSION: 1. No acute abnormality on noncontrast CT abdomen or pelvis. Assessment: Nausea vomiting improving Diarrhea Possible gastroenteritis Plan: Discussed with Dr. Amaya Stool for occult blood, WBC, bacterial culture, C diff IV antibiotic Clear liquid diet advance as tolerated We will continue to monitor patient Outpatient GI follow-up for elective procedures as needed Thank you for this consult Date of Service: Jul 13, 2025 Billing Provider: LUTHER ESPINOZA Common Visit Codes: CONSULT ONLY Consultation Codes: 14089-[id number] CONSULT <60MIN LUTHER ESPINOZA Jul 13, 2025 14:22
--- NOTE | 2025-07-13 14:51 | DVHHPRES ---
History of Present Illness Resident Creating Document: DANNY BOWEN RESIDENT History of Present Illness 65-year-old male patient with past medical history of asthma and hypertension presented with complaints of nausea, vomiting, diarrhea and melena. Patient mentioned that he eat banana pudding on on Friday and after which she started having intractable diarrhea and vomiting. Multiple members of the family also got similar symptoms. Patient mentioned that he had two episodes of vomitus which did not have any blood. But mentioned that he had stools which were black colored and are today brown colored. Patient had three episodes since morning today of loose stools. He denied any abdominal pain today. He had colonoscopy done last year where he had had two polyps removed. Denied any recent EGD He denied any fever, chills, chest pain, shortness of breath, hemoptysis, hematemesis, hematochezia, constipation. Denied any NSAIDs use, any blood thinners. He denied any family history significant for colon cancer/other GI cancers Past medical history Asthma and hypertension Past surgical history No recent surgery Social history Quit smoking 25 years ago, smoked for 25 years Family history Nonsignificant to the above illness Allergic history No known allergies Review of Systems Review of Systems As described in the HPI Allergies: Coded Allergies: NO KNOWN ALLERGIES (Unverified , 06/14/24) Medications Current Medications Medications Dose Ordered Sig/Haydee Route Start Time Stop Time Status Last Admin Dose Admin Pantoprazole Sodium 40 mg BID IV 07/13/25 22:00 Metronidazole 100 ml @ 100 mls/hr Q8HR IV 07/13/25 14:00 Ceftriaxone Sodium/Dextrose 50 ml @ 50 mls/hr DAILY IV 07/14/25 10:00 Exam Vital Signs Vital Signs Date Time Temp Pulse Resp B/P (MAP) Pulse Ox O2 Delivery O2 Flow Rate FiO2 07/13/25 13:00 61 18 169/81 (110) 99 07/13/25 10:55 98.5 98.5 Exam Examination General Appearance: Alert, Oriented X3, Cooperative, No acute distress HEENT: EOMI Respiratory: Clear to auscultation, Normal air movement Cardiovascular: Regular rate, Normal S1, Normal S2 Abdominal: Normal bowel sounds Extremities: No cyanosis, No edema, Normal pulses, No tenderness/swelling Skin: No rashes, No breakdown Neuro: Normal speech and tone Labs/Xrays Labs Test 07/13/25 13:58 07/13/25 09:54 Range/Units Urine Color Light-yellow Yellow Urine Clarity Clear Clear Urine pH 5.5 5.0-9.0 Urine Specific Nada 1.010 1.001-1.035 Urine Protein Negative Negative Urine Ketones Negative Negative Urine Blood Negative Negative /uL Urine Nitrite Negative Negative Urine Bilirubin Negative Negative Urine Urobilinogen Normal Negative mg/dL Urine Leukocyte Esterase Negative Negative /uL Urine RBC <1 0 - 3 /hpf Urine Microscopic WBC 0-3 /HPF Urine Squamous Epithelial Cells None seen <5 /hpf Urine Bacteria None seen None Seen /hpf Urine Glucose Normal Normal mg/dL White Blood Count 5.4 4.4-10.8 10^3/uL Red Blood Count 4.25 L 4.5-5.90 10^6/uL Hemoglobin 14.0 13.5-17.5 g/dL Hematocrit 41.6 41.0-53.0 % Mean Corpuscular Volume 97.9 80.0-100.0 fL Mean Corpuscular Hemoglobin 32.9 H 28.0-32.0 pg Mean Corpuscular Hemoglobin Concent 33.6 32.0-36.0 g/dL Red Cell Distribution Width 12.1 11.8-14.3 % Platelet Count 240 140-450 10^3/uL Mean Platelet Volume 8.3 6.9-10.8 fL Neutrophils (%) (Auto) 66.2 37.0-80.0 % Lymphocytes (%) (Auto) 25.0 10.0-50.0 % Monocytes (%) (Auto) 6.0 0.0-12.0 % Eosinophils (%) (Auto) 2.1 0.0-7.0 % Basophils (%) (Auto) 0.7 0.0-2.0 % Neutrophils # (Auto) 3.6 1.6-8.6 10 ^3/uL Lymphocytes # (Auto) 1.3 0.4-5.4 10 ^3/uL Monocytes # (Auto) 0.3 0-1.3 10 ^3/uL Eosinophils # (Auto) 0.1 0-0.8 10 ^3/uL Basophils # (Auto) 0 0-0.2 10 ^3/uL Nucleated Red Blood Cells 0.2 % Sodium Level 139 136-145 mmol/L Potassium Level 4.3 3.5-5.1 mmol/L Chloride Level 102 98-107 mmol/L Carbon Dioxide Level 29 20-31 mmol/L Anion Gap 8 5-15 Blood Urea Nitrogen 16 9-23 mg/dL Creatinine 1.16 0.700-1.30 mg/dL Glomerular Filtration Rate Calc 69 >90 mL/min BUN/Creatinine Ratio 13.8 10.0-20.0 Serum Glucose 88 74-106 mg/dL Calcium Level 9.2 8.7-10.4 mg/dL Troponin I High Sensitivity 4 </=54 ng/L SEPSIS Sepsis Screen Date sepsis recognized/suspect: Jul 13, 2025 Time Sepsis recognized/suspect: 899 Recent Procedure: No On Antibiotic Therapy: No Respiratory Rate >20: No Heart Rate >90: No Temp<36 C (96.8 F) or >38.3 C: No SBP <90 or MAP <65 mmHG: No New Acute Mental Status Change: No Is the patient on CPAP, BIPAP,: No Physician Orders Ct Ab Pel Wo Con-No Oral Or Iv (07/13/25 09:35) Admit (07/13/25 13:44) Allergies (07/13/25 13:44) Code Status (07/13/25 13:44) Complete Blood Count (07/14/25 04:00) Comprehensive Metabolic Panel (07/14/25 04:00) Oxygen By Nasal Cannula (07/13/25 13:44) Stat Ekg For Chest Pain (07/13/25 13:44) Notify Md Of Changes From Base (07/13/25 13:44) Shaft Headman For 24 Hours (07/13/25 13:44) Emergency Dysrhythmia Protocol (07/13/25 13:44) Rhythm Strips Once Every Shift (07/13/25 13:44) Pantoprazole (Protonix) (07/13/25 22:00) Npo Except Ice Chips (07/13/25 13:44) Metronidazole 500mg/100ml (Flagyl 500mg/ (07/13/25 14:00) Ceftriaxone 2gm/50ml (Rocephin 2gm/50ml) (07/13/25 14:00) Ceftriaxone 2gm/50ml (Rocephin 2gm/50ml) (07/14/25 10:00) Stool Wbc (07/13/25 13:49) Stool Bacterial Culture (07/13/25 13:49) Stool Occult Blood (07/13/25 13:49) Clostridium Difficile Toxin (07/13/25 13:49) Clear Liq Diet (07/13/25 Dinner) Vital Signs Date Time Temp Pulse Resp B/P (MAP) Pulse Ox O2 Delivery O2 Flow Rate FiO2 07/13/25 13:00 61 18 169/81 (110) 99 07/13/25 10:55 98.5 66 18 171/89 (116) 97 98.5 07/13/25 08:58 98.3 63 15 157/73 98 98.3 Laboratory Tests Test 07/13/25 09:54 White Blood Count 5.4 10^3/uL (4.4-10.8) Medications Medications Dose Ordered Sig/Haydee Route Start Time Stop Time Status Last Admin Dose Admin Sodium Chloride 1,000 ml @ 1,000 mls/hr Q1H ONCE IV 07/13/25 09:45 07/13/25 10:44 DC 07/13/25 10:20 1,000 MLS/HR Assessment/Plan Assessment/Plan Assessment/plan # melena, likely upper GI bleed -IV Protonix b.i.d. GI on board Clear liquid diet started by the GI # intractable diarrhea likely due to gastroenteritis -IV fluids IV antibiotics Stool studies # asthma, stable -ipratropium p.r.n. Albuterol p.r.n. # hypertension We will resume home meds DVT prophylaxis We will put on hold because of melena/GI bleed Patient is ambulatory Code status was discussed with the patient for greater than 21 minutes, full code Case discussion with Dr. Lewis Plan discussed with: Patient My Orders Orders - DANNY BOWEN RESIDENT Procedure Category Date Status Time Admit ADMIT 07/13/25 Transmitted 13:44 Allergies GENA 07/13/25 In Process 13:44 Code Status CODE 07/13/25 Transmitted 13:44 Complete Blood Count LAB 07/14/25 Verified 04:00 Comprehensive LAB 07/14/25 Verified Metabolic Panel 04:00 Oxygen By Nasal RT 07/13/25 Transmitted Cannula 13:44 Stat Ekg For Chest GENA 07/13/25 In Process Pain 13:44 Notify Of Changes GENA 07/13/25 In Process From Base 13:44 Sh[place]man For GENA 12/3/25 In Process 24 Hours 13:44 Emergency Dysrhythmia GENA 07/13/25 In Process Protocol 13:44 Rhythm Strips Once GENA 07/13/25 In Process Every Shift 13:44 Pantoprazole PHA 07/13/25 In Process (Protonix) 22:00 Npo Except Ice Chips GENA 07/13/25 In Process 13:44 Metronidazole PHA 07/13/25 In Process 500mg/100ml (Flagyl 14:00 Ceftriaxone 2gm/50ml PHA 07/13/25 In Process (Rocephin 2gm/50ml) 14:00 Ceftriaxone 2gm/50ml PHA 07/14/25 In Process (Rocephin 2gm/50ml) 10:00 Stool Wbc LAB 07/13/25 Logged 13:49 Stool Bacterial MAGDA 07/13/25 Logged Culture 13:49 Stool Occult Blood LAB 07/13/25 Logged 13:49 Clostridium Difficile MAGDA 07/13/25 Logged Toxin 13:49 Visit Coding STANDARD RES Billing Provider: JUDITH LEWIS MD Date of Service if different f: Jul 13, 2025 Common Visit Codes: 70249-[id number] INP/OBS CARE (HIGH) Secondary Visit Codes: [id number] CARE PLAN 30 MINUTES DANNY BOWEN RESIDENT Jul 13, 2025 14:51
[2025-07-13] MEDS: PANTOPRAZOLE 40 MG/10 ML VIAL INJ IV ONE (15:14)
[2025-07-13] MEDS ORDERED: ALBUTEROL SULF 2.5 MG/0.5ML(0.5%) NEB SOLN NEB PRN (16:45)
[2025-07-13] MEDS ORDERED: IPRATROPIUM BROM 0.5 MG/2.5ML INH SOL NEB PRN (16:45)
[2025-07-13 18:20] VITALS: BP 171/95; PULSE 59; RESP 16; TEMP 98.9; O2SAT 98
[2025-07-13 19:56] VITALS: BP 153/76; PULSE 72
[2025-07-13 20:00] VITALS: PULSE 62
[2025-07-13 21:00] VITALS: BP_SYST 128; BP_SYST 149; BP_DIAS 78; BP_DIAS 80; PULSE 60; RESP 18; TEMP 98; O2SAT 96
[2025-07-13 21:36] VITALS: BP 153/76; PULSE 72; RESP 16; TEMP 98.9; O2SAT 98
[2025-07-13] MEDS: PANTOPRAZOLE 40 MG/10 ML VIAL INJ IV SCH (21:59)
[2025-07-13 23:08] VITALS: O2SAT 97
[2025-07-14] VITALS (8 sets, daily range): BP systolic 148–169; BP diastolic 74–100; PULSE 57–78; RESP 16–20; TEMP 97–99.1; O2SAT 95–100
[2025-07-14 05:20] LABS: Hematocrit 39.2 % (41.0-53.0); Hemoglobin 13.2 g/dL (13.5-17.5); Mean Corpuscular Hemoglobin 32.5 pg (28.0-32.0); Mean Corpuscular Volume 96.7 fL (80.0-100.0); Nucleated Red Blood Cells % 0.0 %
[2025-07-14 05:38] LABS: Albumin 4.2 g/dL (3.2-4.8); Alkaline Phosphatase 69 U/L (46-116); Anion Gap 11 (5-15); BUN/Creatinine Ratio 10.9 (10.0-20.0); Blood Urea Nitrogen 11 mg/dL (9-23); Calcium 8.8 mg/dL (8.7-10.4); Carbon Dioxide 26 mmol/L (20-31); Chloride 107 mmol/L (98-107); Glucose 91 mg/dL (74-106); Potassium 3.7 mmol/L (3.5-5.1); Sodium 144 mmol/L (136-145); Total Protein 6.4 g/dL (5.7-8.2)
[2025-07-14 05:41] LABS: Alanine Aminotransferase 42 U/L (7-40); Bilirubin, Total 1.4 mg/dL (0.2-1.0)
[2025-07-14] MEDS ORDERED: SIMV20TA20 PO (07:45)
[2025-07-14] MEDS ORDERED: POTA-36 PO (07:45)
[2025-07-14] MEDS ORDERED: OMEP20TA PO (07:46)
[2025-07-14] MEDS ORDERED: HYDR12.59 PO (07:46)
[2025-07-14] MEDS ORDERED: METO-462 PO (07:47)
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
--- NOTE | 2025-07-14 13:24 | DVHPN2 ---
Subjective Patient admits to feeling better Solid bowel movement today No abdominal pain Denies alcohol use Changes from previous H/P or p: No Changes Objective Vitals Vital Signs Date Time Temp Pulse Resp B/P (MAP) Pulse Ox O2 Delivery O2 Flow Rate FiO2 07/14/25 12:29 99.1 73 19 169/94 (119) 98 99.1 07/14/25 10:00 Room Air 0.0 07/14/25 10:00 21 Intake/Output Intake and Output 07/14/25 07:00 Intake Total 1205 ml Balance 1205 ml Intake Oral 55 ml IV Total 1150 ml # Voids 2 # Bowel Movements 1 Exam General: NAD, AAOX3 Chest: lung tejeda clear to auscultation Heart: RRR, no murmur Abdomen: non-distended, no tenderness to palpation, +BS Medications Current Medications Medications Dose Ordered Sig/[place] Route Start Time Stop Time Status Last Admin Dose Admin Pantoprazole Sodium 40 mg BID IV 07/13/25 22:00 07/14/25 09:56 40 MG Metronidazole 100 ml @ 100 mls/hr Q8HR IV 07/13/25 14:00 07/14/25 06:12 100 MLS/HR Ceftriaxone Sodium/Dextrose 50 ml @ 50 mls/hr DAILY IV 07/14/25 10:00 07/14/25 09:57 50 MLS/HR Albuterol 2.5 mg Q4HPRN PRN NEB 07/13/25 16:45 Ipratropium [place] 0.5 mg Q4HPRN PRN NEB 07/13/25 16:45 Amlodipine Besylate 10 mg DAILY PO 07/14/25 10:00 07/14/25 09:56 10 MG Laboratory Results Laboratory Tests 07/14/25 04:43 Chemistry Test 07/14/25 04:43 Albumin 4.2 g/dL (3.2-4.8) Calcium Level 8.8 mg/dL (8.7-10.4) Total Protein 6.4 g/dL (5.7-8.2) LFT Test 07/14/25 04:43 Alanine Aminotransferase (ALT) 42 U/L (7-40) H Alkaline Phosphatase 69 U/L (46-116) Aspartate Amino Transferase (AST) 30 U/L (13-40) Total Bilirubin 1.4 mg/dL (0.2-1.0) H Urinalysis Test 07/13/25 13:58 Urine Color Light-yellow (Yellow) Urine Clarity Clear (Clear) Urine pH 5.5 (5.0-9.0) Urine Specific [place] 1.010 (1.001-1.035) Urine Protein Negative (Negative) Urine Ketones Negative (Negative) Urine Blood Negative /uL (Negative) Urine Nitrite Negative (Negative) Urine Bilirubin Negative (Negative) Urine Urobilinogen Normal mg/dL (Negative) Urine Leukocyte Esterase Negative /uL (Negative) Urine RBC <1 /hpf (0 - 3) Urine Microscopic WBC /HPF (0-3) Urine Squamous Epithelial Cells None seen /hpf (<5) Urine Bacteria None seen /hpf (None Seen) Urine Glucose Normal mg/dL (Normal) Labs and/or images reviewed: Labs reviewed by me, Image(s) reviewed by me Assessment/Plan Assessment/Plan Nausea vomiting improving Diarrhea Possible gastroenteritis Plan: Discussed with Dr. Amaya Patient has been advance to soft diet Outpatient follow-up with next available appointment for further workup as needed Plan discussed with: Patient Date of Service: Jul 14, 2025 Billing Provider: LUTHER ESPINOZA Common Visit Codes: [id number] INP/OBS CARE(HIGH) LUTHER ESPINOZA Jul 14, 2025 13:24
[2025-07-14] MEDS: LISINOPRIL 5 MG TAB PO ONE (16:41)
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
[2025-07-14] MEDS ORDERED: LISI-275 PO (17:43)
[2025-07-14] MEDS ORDERED: AZIT-185 PO (17:43)
[2025-07-14] MEDS: AZITHROMYCIN 250 MG TAB PO ONE (18:04)
--- NOTE | 2025-07-21 14:05 | DVHPN2 ---
Date of Service: Jul 14, 2025 Billing Provider: JUDITH LEWIS MD Common Visit Codes: [id number] DISCH DAY >30min JUDITH LEWIS MD Jul 21, 2025 14:05
== END 2025-07-14 18:00 | disposition home or self-care (01) | DRG 373 ==
LOC: ER 08:56 → OVERFLOW 13:44 → TELE-EAST 18:41
PROVIDERS: ADMIT Student in an Organized Health Care Education/Training Program; ATTEND Student in an Organized Health Care Education/Training Program
DX: A04.5 Campylobacter enteritis (principal); E66.9 Obesity, unspecified; J45.909 Unspecified asthma, uncomplicated; I10 Essential (primary) hypertension; Z68.32 Body mass index [BMI] 32.0-32.9, adult; Z87.891 Personal history of nicotine dependence
CPT/HCPCS: 36415; 74176; 80048; 80053; 81001; 82270; 84484; 85025; 85048; 87045; 87427; 87493; G0378; J1815; J2470; J3490